=== PATIENT | female | born 1970 | race Caucasian/White ===

== ENCOUNTER 2016-12-13 10:30 | Emergency (ER) | payer BC, OTHER ==
[2016-12-13] MEDS ORDERED: CIPROFLOXACIN 250 MG TABLET PO STA (11:56)
[2016-12-13] MEDS ORDERED: CIPROFLOXACIN 250 MG TABLET PO ONE (12:01)
== END 2016-12-13 12:05 | disposition home or self-care (01) ==
DX: N12 Tubulo-interstitial nephritis, not specified as acute or chronic (principal); R03.0 Elevated blood-pressure reading, without diagnosis of hypertension; Z85.3 Personal history of malignant neoplasm of breast
CPT/HCPCS: 81001; 81025; 87086; 99282; 99283; A9270

== ENCOUNTER 2017-02-26 11:13 | Emergency (ER) | payer BC, OTHER ==
--- NOTE | 2017-02-26 11:24 | ED Physician Documentation ---
PD HPI HEENT - Stated complaint Stated Complaint: HIGH BLOOD PRESSURE - Chief complaint Chief Complaint: General - History obtained from History obtained from: Patient - History of Present Illness Timing - onset: Yesterday (she had her BP read at [facility] yesterday and was quite high at 180/110, so bought BP cuff and has taken it several times since then, with consistently high reading, particularly diastolic. Here for concern about it being so high.) Timing - duration: Days (2) Timing - details: Other (unknown current duration of high BP. She says it has been slightly abnormal high for office visits/etc for over 6 months, but not enough to start med.) Associated symptoms: Headache (feeling of head pressure and correlates it to when BP is higher.). No: Fever, Congestion Similar symptoms before: No diagnosis Recently seen: Not recently seen Review of Systems Constitutional: reports: Myalgias, Fatigue (often). denies: Fever, Chills Nose: denies: Rhinorrhea / runny nose, Congestion Throat: denies: Sore throat Cardiac: denies: Chest pain / pressure, Palpitations Respiratory: reports: Dyspnea (intermittently). denies: Cough, Wheezing GI: denies: Abdominal Pain, Nausea, Vomiting : denies: Dysuria, Frequency Skin: denies: Rash Musculoskeletal: denies: Extremity swelling Neurologic: denies: Focal weakness, Numbness, Difficulty speaking, Near syncope (feeling head pressure and notes it to be when BP is elevated.), Confused, Altered mental status, Headache PD PAST MEDICAL HISTORY - Past Medical History Cardiovascular: Arrhythmia (right bundle block) Respiratory: None Neuro: None Endocrine/Autoimmune: None GI: None LIMB DRIVER: Endometriosis, Breast cancer : None HEENT: None Psych: Anxiety, Panic attacks, Obsessive compulsive disorder Musculoskeletal: None Derm: 11 - Past Surgical History Past Surgical History: Yes General: Cholecystectomy Ortho: Other /LIMB DRIVER: Tubal ligation, Mastectomy - Present Medications Home Medications: Ambulatory Orders Medication Instructions Recorded Confirmed Venlafaxine ER [Effexor ER] 225 mg PO DAILY 03/04/13 02/26/17 Anastrozole 1 mg ORAL DAILY 12/13/16 02/26/17 Calcium Carbonate/Vitamin D3 1 tab ORAL DAILY 12/13/16 02/26/17 [Calcium 500 + Vit D Caplet] Clonazepam 0.5 mg ORAL QPM 12/13/16 02/26/17 Ibuprofen 800 mg PO TID PRN 12/13/16 02/26/17 Losartan [Cozaar] 50 mg PO DAILY #30 tablet 02/26/17 - Allergies Allergies/Adverse Reactions: Allergies Allergy/AdvReac Type Severity Reaction Status Date / Time clindamycin AdvReac Severe chest pain Verified 02/26/17 11:17 - Social History Does the pt smoke?: No Smoking Status: Never smoker Does the pt drink ETOH?: Yes Does the pt have substance abuse?: No - Family History Family history: reports: CAD, Sudden . denies: Venous thromboembolism - Immunizations Immunizations are current?: Yes - POLST Patient has POLST: No PD ED PE NORMAL - Vitals Vital signs reviewed: Yes - General General: Alert and oriented X 3, No acute distress, Well developed/nourished - HEENT HEENT: PERRL (fundi normal), Moist mucous membranes, Pharynx benign - Neck Neck: Supple, no meningeal sign, No adenopathy, Thyroid normal - Cardiac Cardiac: RRR, No murmur - Respiratory Respiratory: Clear bilaterally - Abdomen Abdomen: Soft, Non tender - Back Back: No CVA TTP - Derm Derm: Normal color, Warm and dry - Extremities Extremities: Normal ROM s pain, No edema, No calf tenderness / cord - Neuro Neuro: Alert and oriented X 3, 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 No: Normal affect (anxious about BP being elevated) Results - Vitals Vitals: Vital Signs - 24 hr 02/26/17 02/26/17 11:18 12:48 Temperature 36.8 C Heart Rate 85 70 Respiratory 20 18 Rate Blood Pressure 150/100 H 138/97 H O2 Saturation 100 98 Oxygen O2 Source Room air - EKG (time done) 11:47 Rate: Rate (enter#) (78) Rhythm: NSR [place]: Normal Intervals: RBBB QRS: Normal Ischemia: Normal ST segments. No: ST elevation c/w ischemia, ST depression Compare to prior EKG: Old EKG unavailable - Labs Labs: Laboratory Tests 02/26/17 02/26/17 02/26/17 11:47 11:47 12:07 WBC 7.8 RBC 4.52 Hgb 13.2 Hct 38.6 MCV 85.4 MCH 29.3 MCHC 34.3 RDW 13.1 Plt Count 309 MPV 7.3 L Neut # 4.8 Lymph # 2.1 Bureau # 0.5 Eos # 0.3 Baso # 0.1 Absolute Nucleated RBC 0.00 Nucleated RBCs 0.0 Sodium 138 Potassium 3.9 Chloride 101 Carbon Dioxide 28 Anion Gap 9.0 BUN 13 Creatinine 0.8 Estimated GFR (MDRD) 77 L Glucose 95 Calcium 9.4 Total Bilirubin 0.4 AST 16 ALT 16 Alkaline Phosphatase 72 Total Protein 7.2 Albumin 4.3 Globulin 2.9 Albumin/Globulin Ratio 1.5 Lipase 15 L Urine Color YELLOW Urine Clarity CLEAR Urine pH 5.5 Ur Specific [place] <=1.005 Urine Protein NEGATIVE Urine Glucose (UA) NEGATIVE Urine Ketones NEGATIVE Urine Occult Blood SMALL H Urine Nitrite NEGATIVE Urine Bilirubin NEGATIVE Urine Urobilinogen 0.2 (NORMAL) Ur Leukocyte Esterase NEGATIVE Urine RBC 0-5 Urine WBC 0-3 Ur Squamous Epith Cells NONE SEEN Urine Bacteria None Seen Ur Microscopic Review INDICATED Urine Culture Comments NOT INDICATED PD MEDICAL DECISION MAKING - ED course Complexity details: reviewed results, considered differential (I don't know if the BP is actually making her feel badly, but it is elevated and she says that it has been slightly high for awhile, so reasonable to start low dose treatment. Even if not directly giving her symptoms, the elevated pressure is giving her enough anxiety about it to start treatment, and seems appropriate by AHA guidelines. ), d/w patient Departure - Departure Disposition: 01 Home, Self Care Clinical Impression: High blood pressure Qualifiers: Hypertension type: unspecified secondary hypertension Qualified Code(s): I15.9 - Secondary hypertension, unspecified Condition: Stable Record reviewed to determine appropriate education?: Yes Instructions: ED Hypertension New Begin Tx Prescriptions: Losartan [Cozaar] 50 mg PO DAILY #30 tablet Comments: With your BP being moderately elevated and it making you feel badly, and with you having had a bit high BP in the past, it would make sense to start a mild blood pressure medication. Low salt diet, and do some regular exercise for even 20-30 minutes 3-4 times a week. These can help with blood pressure. Follow up with PMD to see if doing okay. Check your BP once or twice daily over the next week and record it to see the trend of it over time. Call for an appt with your PCP. Discharge Date/Time: 02/26/17 12:48
[2017-02-26 11:54] LABS: BASOPHILS # (AUTO) 0.1 10^3/uL (0.0-0.1); BASOPHILS % (AUTO) 1.1 %; EOSINOPHILS # (AUTO) 0.3 10^3/uL (0.0-0.7); EOSINOPHILS % (AUTO) 4.4 %; HCT - HEMATOCRIT 38.6 % (37.0-47.0); HGB - HEMOGLOBIN 13.2 g/dL (12.0-16.0); LYMPHOCYTES # (AUTO) 2.1 10^3/uL (1.5-3.5); LYMPHOCYTES % (AUTO) 26.9 %; MEAN CORPUSCULAR HEMOGLOBIN 29.3 pg (27.0-31.0); MEAN CORPUSCULAR HGB CONC 34.3 g/dL (32.0-36.0); MEAN CORPUSCULAR VOLUME 85.4 fL (81.0-99.0); MEAN PLATELET VOLUME 7.3 fL (7.9-10.8); MONOCYTES # (AUTO) 0.5 10^3/uL (0.0-1.0); MONOCYTES % (AUTO) 6.5 %; NEUTROPHILS # (AUTO) 4.8 10^3/uL (1.5-6.6); NEUTROPHILS % (AUTO) 61.1 %; RED BLOOD COUNT 4.52 10^6/uL (4.20-5.40); RED CELL DISTRIBUTION WIDTH 13.1 % (12.0-15.0); UNCORRECTED WHITE BLOOD COUNT 7.8 x10^3/uL; WHITE BLOOD COUNT 7.8 x10^3/uL (4.8-10.8)
[2017-02-26 12:08] LABS: ALBUMIN/GLOBULIN RATIO 1.5 (1.0-2.2); BILIRUBIN,TOTAL 0.4 mg/dL (0.2-1.0); CALCIUM 9.4 mg/dL (8.5-10.3); CREATININE 0.8 mg/dL (0.4-1.0); POTASSIUM 3.9 mmol/L (3.5-5.0); TOTAL PROTEIN 7.2 g/dL (6.7-8.2)
[2017-02-26] MEDS ORDERED: LOSARTAN 50 MG TABLET PO STA (12:14)
[2017-02-26 12:29] LABS: BILIRUBIN,URINE NEGATIVE (NEGATIVE); PH,URINE 5.5 PH (5.0-7.5)
[2017-02-26 12:30] LABS: UA w/ MICROSCOPIC CHARGE YES
[2017-02-26 12:41] LABS: UR CULTURE IF IND NOT INDICATED; WBC,URINE 0-3 /HPF (0-5)
[2017-02-26 12:48] VITALS: BP 138/97
== END 2017-02-26 12:48 | disposition home or self-care (01) ==
LOC: ED 11:13
DX: I15.9 Secondary hypertension, unspecified (principal); I45.19 Other right bundle-branch block; R94.31 Abnormal electrocardiogram [ECG] [EKG]; Z85.3 Personal history of malignant neoplasm of breast; Z90.10 Acquired absence of unspecified breast and nipple
CPT/HCPCS: 36415; 80053; 81001; 83690; 85025; 93005; 93010; 99283; 99284; A9270; 81003; 87086

== ENCOUNTER 2017-06-26 11:03 | Emergency (ER) | payer BC, OTHER ==
[2017-06-26 11:08] VITALS: BP 155/104
[2017-06-26 11:28] LABS: BILIRUBIN,URINE NEGATIVE (NEGATIVE); PH,URINE 5.5 PH (5.0-7.5)
[2017-06-26 11:30] LABS: UA w/ MICROSCOPIC CHARGE YES
[2017-06-26 11:39] LABS: WBC,URINE >25 /HPF (0-5)
[2017-06-26 11:40] LABS: UR CULTURE IF IND INDICATED
--- NOTE | 2017-06-26 12:07 | ED Physician Documentation ---
PD HPI FEMALE - Stated complaint Stated Complaint: FEMALE - Chief complaint Chief Complaint: Abd Pain - History obtained from History obtained from: Patient - History of Present Illness Timing - onset: How many days ago (3) Timing - duration: Days (3) Timing - details: Gradual onset, Still present Associated symptoms: Back pain, Dysuria, Urinary frequency Contributing factors: No: Similar symptoms before: Diagnosis (UTI) Recently seen: Not recently seen - Additional information Additional information: Previously healthy 47-year-old female is developed urinary urgency frequency and dysuria with some low back pain. She has not had fever or vomiting. Review of Systems Constitutional: denies: Fever Eyes: denies: Decreased vision Ears: denies: Ear pain Nose: denies: Congestion Throat: denies: Sore throat Cardiac: denies: Chest pain / pressure Respiratory: denies: Cough GI: denies: Abdominal Pain, Nausea, Vomiting, Constipation, Diarrhea : reports: Dysuria, Frequency Skin: denies: Rash Musculoskeletal: reports: Back pain. denies: Neck pain, Extremity pain Neurologic: denies: Generalized weakness, Focal weakness, Numbness PD PAST MEDICAL HISTORY - Past Medical History Past Medical History: Yes Cardiovascular: Arrhythmia Respiratory: None Neuro: None Endocrine/Autoimmune: None GI: None SEPTIC TANK SERVICER: Endometriosis, Breast cancer : None HEENT: None Psych: Anxiety, Panic attacks, Obsessive compulsive disorder Musculoskeletal: None Derm: 11 - Past Surgical History Past Surgical History: Yes General: Cholecystectomy Ortho: Other /SEPTIC TANK SERVICER: Tubal ligation, Mastectomy - Present Medications Home Medications: Ambulatory Orders Medication Instructions Recorded Confirmed Venlafaxine ER [Effexor ER] 225 mg PO DAILY 03/04/13 06/26/17 Anastrozole 1 mg ORAL DAILY 12/13/16 06/26/17 Calcium Carbonate/Vitamin D3 1 tab ORAL DAILY 12/13/16 06/26/17 [Calcium 500 + Vit D Caplet] Clonazepam 0.5 mg ORAL QPM 12/13/16 06/26/17 Ibuprofen 800 mg PO TID PRN 12/13/16 06/26/17 Sulfamethoxazole/Trimethoprim 1 each PO BID #10 tablet 06/26/17 [Sulfamethoxazole-Tmp Ds Tablet] - Allergies Allergies/Adverse Reactions: Allergies Allergy/AdvReac Type Severity Reaction Status Date / Time clindamycin AdvReac Severe chest pain Verified 06/26/17 11:08 - Social History Does the pt smoke?: No Smoking Status: Never smoker Does the pt drink ETOH?: Yes Does the pt have substance abuse?: No - Immunizations Immunizations are current?: Yes - POLST Patient has POLST: No PD ED PE NORMAL - Vitals Vital signs reviewed: Yes (Hypertension) - General General: No acute distress, Well developed/nourished - HEENT HEENT: Atraumatic, PERRL, EOMI - Neck Neck: Supple, no meningeal sign - Respiratory Respiratory: No respiratory distress - Abdomen Abdomen: Soft, Non tender, Other (No pain to bimanual palpation of the right or left kidney.) - Back Back: No CVA TTP, No spinal TTP - Derm Derm: Normal color, Warm and dry, No rash - Extremities Extremities: No deformity, No edema - Neuro Neuro: No motor deficit, No sensory deficit - Psych Psych: Normal mood, Normal affect Results - Vitals Vitals: Vital Signs - 24 hr 06/26/17 11:05 Temperature 36.5 C Heart Rate 93 Respiratory 16 Rate Blood Pressure 155/104 H O2 Saturation 100 Oxygen O2 Source Room air - Labs Labs: Laboratory Tests 06/26/17 11:11 Urine Color YELLOW Urine Clarity CLEAR Urine pH 5.5 Ur Specific [place] <=1.005 Urine Protein NEGATIVE Urine Glucose (UA) NEGATIVE Urine Ketones NEGATIVE Urine Occult Blood LARGE H Urine Nitrite NEGATIVE Urine Bilirubin NEGATIVE Urine Urobilinogen 0.2 (NORMAL) Ur Leukocyte Esterase SMALL H Urine RBC 0-5 Urine WBC >25 H Urine WBC Clumps PRESENT Ur Epithelial Cells RARE Transitional Ur Squamous Epith Cells NONE SEEN Urine Bacteria Few Ur Microscopic Review INDICATED Urine Culture Comments INDICATED PD MEDICAL DECISION MAKING - ED course Complexity details: reviewed results, re-evaluated patient, considered differential, d/w patient ED course: 47-year-old female with acute urinary tract infection as allergy to clindamycin. Departure - Departure Disposition: 01 Home, Self Care Clinical Impression: Urinary tract infection Qualifiers: Urinary tract infection type: acute cystitis Hematuria presence: without hematuria Qualified Code(s): N30.00 - Acute cystitis without hematuria Condition: Stable Instructions: ED UTI Cystitis Female Follow-Up: Your, doctor [Other] Prescriptions: Sulfamethoxazole/Trimethoprim [Sulfamethoxazole-Tmp Ds Tablet] 1 each PO BID # 10 tablet Forms: Activity restrictions
== END 2017-06-26 12:21 | disposition home or self-care (01) ==
LOC: ED 11:03
DX: N30.00 Acute cystitis without hematuria (principal); I49.9 Cardiac arrhythmia, unspecified; Z85.3 Personal history of malignant neoplasm of breast
CPT/HCPCS: 81001; 81003; 87086; 99283

== ENCOUNTER 2017-09-16 09:29 | Outpatient (CLI) | payer BC, OTHER | END 2017-09-16 09:30 | disposition home or self-care (01) | LOC: LAB.F 09:29 | PROVIDERS: ATTEND Registered Nurse | DX: R82.99 Other abnormal findings in urine (principal) ==

== ENCOUNTER 2018-12-05 08:35 | Outpatient (CLI) | payer OTHER ==
[2018-12-05 11:21] LABS: CALCIUM 8.8 mg/dL (8.5-10.3); CREATININE 0.8 mg/dL (0.4-1.0)
== END 2018-12-05 08:36 | disposition home or self-care (01) ==
LOC: LAB.F 08:35
PROVIDERS: ATTEND Internal Medicine
DX: I10 Essential (primary) hypertension (principal)
CPT/HCPCS: 36415; 80048

== ENCOUNTER 2018-12-13 08:00 | Outpatient (CLI) | payer OTHER ==
[2018-12-13 18:03] LABS: CALCIUM 9.4 mg/dL (8.5-10.3); CREATININE 0.7 mg/dL (0.4-1.0)
== END 2018-12-13 23:59 | disposition home or self-care (01) ==
LOC: LAB.F 08:00
PROVIDERS: ATTEND Internal Medicine
DX: E78.6 Lipoprotein deficiency (principal); R79.89 Other specified abnormal findings of blood chemistry
CPT/HCPCS: 36415; 80048

== ENCOUNTER 2019-10-22 10:05 | Outpatient (CLI) | payer OTHER ==
[2019-10-22 18:17] LABS: ALBUMIN 3.9 g/dL (3.2-5.5); ALBUMIN/GLOBULIN RATIO 1.3 (1.0-2.2); ALKALINE PHOSPHATASE 39 IU/L (42-121); ALT ALANINE AMINOTRANSFERASE 15 IU/L (10-60); AST ASPARTATE AMINOTRANSFERASE 16 IU/L (10-42); BILIRUBIN,TOTAL 0.5 mg/dL (0.2-1.0); BUN - BLOOD UREA NITROGEN 19 mg/dL (6-20); CALCIUM 9.5 mg/dL (8.5-10.3); CARBON DIOXIDE - CO2 28 mmol/L (21-32); CHLORIDE 104 mmol/L (101-111); CHOL/HDL RATIO 3.3 (<4.4); CHOLESTEROL 217 mg/dL; CREATININE 0.7 mg/dL (0.4-1.0); GFR - MDRD 89 (>89); GLUCOSE 105 mg/dL (70-100); HDL CHOLESTEROL 65 mg/dL; LDL CHOLESTEROL,CALCULATED 132 mg/dL; MAGNESIUM 2.1 mg/dL (1.7-2.8); SODIUM 139 mmol/L (135-145); VLDL CHOLESTEROL 20 mg/dL
== END 2019-10-22 10:06 | disposition home or self-care (01) ==
LOC: LAB.S 10:05
PROVIDERS: ATTEND Internal Medicine
DX: I10 Essential (primary) hypertension (principal)
CPT/HCPCS: 36415; 80053; 80061; 83721; 83735

== ENCOUNTER 2021-08-04 08:00 | Outpatient (CLI) | payer OTHER ==
[2021-08-04 15:18] LABS: BILIRUBIN,URINE NEGATIVE (NEGATIVE); GLUCOSE, URINE (UA) NEGATIVE (NEGATIVE); KETONES,URINE (UA) NEGATIVE (NEGATIVE); LEUKOCYTE ESTERASE, URINE NEGATIVE (NEGATIVE); NITRITE,URINE NEGATIVE (NEGATIVE); OCCULT BLOOD,URINE NEGATIVE (NEGATIVE); PH,URINE 6.5 PH (5.0-7.5); PROTEIN,URINE NEGATIVE (NEGATIVE); UROBILINOGEN,URINE 0.2 (NORMAL) E.U./dL (NORMAL)
[2021-08-04 15:35] LABS: BACTERIA,URINE Rare /HPF (None Seen); CLARITY,URINE CLEAR (CLEAR); RBC,URINE 0-5 /HPF (0-5); SQUAMOUS EPITHELIAL CELL,UR MOD Squamous (<= Few)
== END 2021-08-04 23:59 | disposition home or self-care (01) ==
LOC: LAB.S 08:00
PROVIDERS: ATTEND Emergency Medicine
DX: R30.0 Dysuria (principal); I10 Essential (primary) hypertension; Z11.59 Encounter for screening for other viral diseases; R73.01 Impaired fasting glucose
CPT/HCPCS: 36415; 80053; 80061; 81001; 83036; 83721; 86803; 87086

== ENCOUNTER 2021-08-05 21:21 | Emergency (ER) | payer OTHER ==
[2021-08-05 21:43] LABS: BASOPHILS # (AUTO) 0.1 10^3/uL (0.0-0.1); BASOPHILS % (AUTO) 0.8 %; EOSINOPHILS # (AUTO) 0.3 10^3/uL (0.0-0.7); EOSINOPHILS % (AUTO) 3.1 %; HCT - HEMATOCRIT 40.4 % (37.0-47.0); HGB - HEMOGLOBIN 13.3 g/dL (12.0-16.0); LYMPHOCYTES # (AUTO) 2.4 10^3/uL (1.5-3.5); LYMPHOCYTES % (AUTO) 28.7 %; MEAN CORPUSCULAR HEMOGLOBIN 30.5 pg (27.0-31.0); MEAN CORPUSCULAR HGB CONC 32.9 g/dL (32.0-36.0); MEAN CORPUSCULAR VOLUME 92.7 fL (81.0-99.0); MEAN PLATELET VOLUME 8.6 fL (7.9-10.8); MONOCYTES # (AUTO) 0.8 10^3/uL (0.0-1.0); MONOCYTES % (AUTO) 9.3 %; NEUTROPHILS # (AUTO) 4.9 10^3/uL (1.5-6.6); NEUTROPHILS % (AUTO) 57.9 %; PLT - PLATELET COUNT 347 10^3/uL (130-450); RED BLOOD COUNT 4.36 10^6/uL (4.20-5.40); RED CELL DISTRIBUTION WIDTH 12.7 % (12.0-15.0); WHITE BLOOD COUNT 8.5 x10^3/uL (4.8-10.8)
[2021-08-05 21:56] LABS: BILIRUBIN,URINE NEGATIVE (NEGATIVE); GLUCOSE, URINE (UA) NEGATIVE (NEGATIVE); KETONES,URINE (UA) NEGATIVE (NEGATIVE); LEUKOCYTE ESTERASE, URINE NEGATIVE (NEGATIVE); NITRITE,URINE NEGATIVE (NEGATIVE); OCCULT BLOOD,URINE SMALL (NEGATIVE); PROTEIN,URINE NEGATIVE (NEGATIVE); UROBILINOGEN,URINE 0.2 (NORMAL) E.U./dL (NORMAL)
[2021-08-05 21:57] LABS: ALBUMIN 4.2 g/dL (3.2-5.5); ALBUMIN/GLOBULIN RATIO 1.4 (1.0-2.2); BILIRUBIN,TOTAL 0.7 mg/dL (0.2-1.0); CALCIUM 9.1 mg/dL (8.5-10.3); CREATININE 0.9 mg/dL (0.4-1.0); POTASSIUM 3.7 mmol/L (3.5-5.0); TOTAL PROTEIN 7.2 g/dL (6.7-8.2)
[2021-08-05 21:59] LABS: CLARITY,URINE CLEAR (CLEAR)
[2021-08-05 22:04] LABS: BACTERIA,URINE Rare /HPF (None Seen); RBC,URINE 0-5 /HPF (0-5); SQUAMOUS EPITHELIAL CELL,UR FEW Squamous (<= Few); WBC,URINE 0-3 /HPF (0-5)
[2021-08-05] MEDS ORDERED: SODIUM CHLORIDE 0.9% 1,000 ML IV STA (22:22)
[2021-08-05] MEDS ORDERED: IOVERSOL 320 100 ML VIAL IVP ONE ×2 (23:16→23:46)
--- NOTE | 2021-08-06 00:08 | CT Report ---
PROCEDURE: CT abdomen and pelvis with contrast INDICATIONS: R flank pain, n/v hematuria CONTRAST: IV CONTRAST: Optiray 320 ml: 100 PO CONTRAST: *NO PO CONTRAST TECHNIQUE: After the administration of contrast, 5 mm thick sections acquired from the diaphragms to the sym physis. 5 mm thick coronal and sagittal reformats were acquired. For radiation dose reduction, the following was used: automated exposure control, adjustment of mA and/or kV according to patient size . COMPARISON: None. FINDINGS: Image quality: Excellent. ABDOMEN: Lung bases: Lung bases are clear. Heart size is normal. Bilateral breast prosthesis noted. Solid organs: Liver and spleen are normal in size and enhancement. Gallbladder surgically absent B iliary system is non dilated. Pancreas enhances normally. No adrenal nodules. Kidneys demonstrate normal size and enhancement, without hydronephrosis. Peritoneum and bowel: Bowel loops demonstrate normal wall thickness and caliber. No free fluid or a ir. Moderate fecal debris throughout the colon Nodes and vessels: No retroperitoneal or mesenteric adenopathy by size criteria. Aorta and inferior vena cava are normal in size. Miscellaneous: No ventral hernias. PELVIS: Genitourinary: Bladder wall thickness is normal. Miscellaneous: No inguinal hernias or adenopathy. Bones: No suspicious bony lesions. No vertebral body compression fractures. IMPRESSION: 1. No acute findings. No evidence of renal calculi or hydronephrosis. 2. Moderate to fecal debris throughout the colon without obstruction. Reviewed by: Romeo Fountain MD on 08/05/2021 11:07 PM AKDT Approved by: Romeo Fountain MD on 08/05/2021 11:07 PM AKDT Station ID: [id number]
--- NOTE | 2021-08-06 00:22 | ED Physician Documentation ---
History of Present Illness - Stated complaint Stated Complaint: RLQ PAIN/FEVER - Chief complaint Chief Complaint: Abd Pain - History obtained from History obtained from: Patient - Additonal information Additional information: 51-year-old woman with history of high blood pressure and anxiety presents with right flank pain for the past 2 days, intermittent, associated with nonbloody nonbilious nausea and vomiting and subjective chills with T-max of 99.8 at home. Patient took ibuprofen prior to arrival and states that it gave her some relief. Denies urinary symptoms. PSH JONNY Review of Systems Ten Systems: 10 systems reviewed and negative Constitutional: reports: Myalgias. denies: Fever, Chills GI: reports: Nausea, Vomiting : reports: Hematuria. 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: Endometriosis, Breast cancer : None HEENT: None Psych: Anxiety, Panic attacks, Obsessive compulsive disorder Musculoskeletal: None Derm: 11 - Past Surgical History Past Surgical History: Yes General: Cholecystectomy Ortho: Other /AUTO FINANCE SALES REP: Tubal ligation, Mastectomy - Present Medications Home Medications: Ambulatory Orders Medication Instructions Recorded Confirmed Venlafaxine ER [Effexor ER] 225 mg PO DAILY 03/04/13 08/05/21 clonazePAM [Clonazepam] 0.5 mg ORAL QPM 12/13/16 08/05/21 Losartan Potassium [Cozaar] 100 mg PO QID 08/05/21 08/05/21 Tamoxifen [Nolvadex] 20 mg PO QID 08/05/21 08/05/21 amLODIPine [Norvasc] 2.5 mg PO QID 08/05/21 08/05/21 - Allergies Allergies/Adverse Reactions: Allergies Allergy/AdvReac Type Severity Reaction Status Date / Time clindamycin AdvReac Severe chest pain Verified 08/05/21 21:35 - Social History Does the pt smoke?: No Smoking Status: Never smoker Does the pt drink ETOH?: Yes Does the pt have substance abuse?: No - Immunizations Immunizations are current?: Yes - POLST Patient has POLST: No PD ED PE NORMAL - Vitals Vital signs reviewed: Yes - General General: Alert and oriented X 3, No acute distress, Well developed/nourished - HEENT HEENT: Atraumatic, PERRL, EOMI - Neck Neck: Supple, no meningeal sign - Cardiac Cardiac: RRR - Respiratory Respiratory: No respiratory distress, Clear bilaterally - Abdomen Abdomen: Non tender, Non distended - Back Back: Other (R CVA ttp) - Derm Derm: Normal color, Warm and dry - Neuro Neuro: No motor deficit, No sensory deficit - Psych Psych: Normal mood, Normal affect Results - Vitals Vitals: Vital Signs - 24 hr 08/05/21 08/06/21 21:32 00:36 Temperature 36.9 C 36.9 C Heart Rate 102 H 78 Respiratory 16 16 Rate Blood Pressure 161/90 H 138/80 H O2 Saturation 98 98 Oxygen O2 Source Room air - Labs Labs: Laboratory Tests 08/05/21 08/05/21 08/05/21 21:40 21:40 21:48 WBC 8.5 RBC 4.36 Hgb 13.3 Hct 40.4 MCV 92.7 MCH 30.5 MCHC 32.9 RDW 12.7 Plt Count 347 MPV 8.6 Neut # (Auto) 4.9 Lymph # (Auto) 2.4 [place] # (Auto) 0.8 Eos # (Auto) 0.3 Baso # (Auto) 0.1 Absolute Nucleated RBC 0.00 Nucleated RBC % 0.0 Sodium 140 Potassium 3.7 Chloride 103 Carbon Dioxide 27 Anion Gap 10.0 BUN 18 Creatinine 0.9 Estimated GFR (MDRD) 66 L Glucose 103 H Calcium 9.1 Total Bilirubin 0.7 AST 21 ALT 31 Alkaline Phosphatase 63 Total Protein 7.2 Albumin 4.2 Globulin 3.0 Albumin/Globulin Ratio 1.4 Lipase 30 Urine Color YELLOW Urine Clarity CLEAR Urine pH 6.0 Ur Specific [place] <=1.005 Urine Protein NEGATIVE Urine Glucose (UA) NEGATIVE Urine Ketones NEGATIVE Urine Occult Blood SMALL H Urine Nitrite NEGATIVE Urine Bilirubin NEGATIVE Urine Urobilinogen 0.2 (NORMAL) Ur Leukocyte Esterase NEGATIVE Urine RBC 0-5 Urine WBC 0-3 Ur Squamous Epith Cells FEW Squamous Urine Bacteria Rare Ur Microscopic Review INDICATED Urine Culture Comments NOT INDICATED PD MEDICAL DECISION MAKING - ED course ED course: Patient states her pain improved in the emergency department. declining pain meds. no nausea. ct noncontributory. discussed that she may have passed a stone or this could be muscle related pain. return precautions discussed. plan to f/u with pmd. Departure - Departure Disposition: 01 Home, Self Care Clinical Impression: Flank pain Condition: Good Instructions: ED Acute Pain [facility] Comments: You were seen in the emergency department for flank pain. Your CT did not un cover any dangerous findings. Your urine showed a small amount of blood which may mean you passed a kidney stone. You should follow up with your primary doctor this week. Return to the emergency department if you have new or worsening symptoms or other concerns. Discharge Date/Time: 08/06/21 00:47
[2021-08-06 00:36] VITALS: BP 138/80
== END 2021-08-06 00:47 | disposition home or self-care (01) ==
LOC: ED 21:21
DX: R10.31 Right lower quadrant pain (principal); R11.2 Nausea with vomiting, unspecified; R31.9 Hematuria, unspecified; I10 Essential (primary) hypertension
CPT/HCPCS: 36415; 74177; 80053; 81001; 83690; 85025; 99283; 99284; Q9967; 81003; 87086

== ENCOUNTER 2021-08-07 08:00 | Outpatient (CLI) | payer OTHER | END 2021-08-07 23:59 | disposition home or self-care (01) | LOC: LAB.S 08:00 | PROVIDERS: ATTEND Emergency Medicine | DX: R53.83 Other fatigue (principal); Z20.822 Contact with and (suspected) exposure to COVID-19 ==

== ENCOUNTER 2022-11-04 14:23 | Outpatient (CLI) | payer OTHER | END 2022-11-04 14:24 | disposition critical access hospital (66) | LOC: EMS 14:23 | DX: E16.2 Hypoglycemia, unspecified (principal); R51.9 Headache, unspecified | CPT/HCPCS: A0425; A0429 ==

== ENCOUNTER 2022-11-04 14:47 | Emergency (ER) | payer OTHER ==
--- NOTE | 2022-11-04 15:12 | ED Physician Documentation ---
History of Present Illness - Stated complaint Stated Complaint: LOW BLOOD SUGAR - Chief complaint Chief Complaint: General - History obtained from History obtained from: Patient - History of Present Illness Timing: Today, Yesterday Quality: the patient has had Dx of pre-diabetes. She has a blood cglucose monitor and checks blood sugar 3 times daily and it is usually fairly stable. The past 2 days has had the sugar drop to 40s as lowest but down to 60-70 several times. she does not take insulin nor diabetes meds otherwise. No change in meds otherwise. She state has been eating regularly. No unusual phuysical activity. Having some cramping in abd but no diarrhea. No URi nor UTI symptoms. Review of Systems Constitutional: denies: Fever, Chills Nose: denies: Rhinorrhea / runny nose, Congestion Throat: denies: Sore throat Respiratory: denies: Cough GI: reports: Abdominal Pain (mild intermittent cramping, nonfocal.). denies: Nausea, Vomiting, Constipation, Diarrhea : denies: Dysuria, Discharge Skin: denies: Rash, Lesions PD PAST MEDICAL HISTORY - Past Medical History Cardiovascular: Arrhythmia Respiratory: None Endocrine/Autoimmune: None GI: None PET CAREGIVER: Endometriosis, Breast cancer : None HEENT: None Psych: Anxiety, Panic attacks, Obsessive compulsive disorder Musculoskeletal: None Derm: 11 - Past Surgical History Past Surgical History: Yes General: Cholecystectomy Ortho: Other /PET CAREGIVER: Tubal ligation, Mastectomy - Present Medications Home Medications: Ambulatory Orders Medication Instructions Recorded Confirmed Venlafaxine ER [Effexor ER] 225 mg PO DAILY 03/04/13 08/05/21 clonazePAM [Clonazepam] 0.5 mg ORAL QPM 12/13/16 08/05/21 Losartan Potassium [Cozaar] 100 mg PO QID 08/05/21 08/05/21 Tamoxifen [Nolvadex] 20 mg PO QID 08/05/21 08/05/21 amLODIPine [Norvasc] 2.5 mg PO QID 08/05/21 08/05/21 - Allergies Allergies/Adverse Reactions: Allergies Allergy/AdvReac Type Severity Reaction Status Date / Time clindamycin AdvReac Severe chest pain Verified 11/04/22 14:52 - Social History Does the pt smoke?: No Smoking Status: Never smoker Does the pt drink ETOH?: Yes Does the pt have substance abuse?: No - Immunizations Immunizations are current?: Yes - POLST Patient has POLST: No PD ED PE NORMAL - Vitals Vital signs reviewed: Yes - General General: Alert and oriented X 3, No acute distress, Well developed/nourished - HEENT HEENT: Pharynx benign - Neck Neck: Supple, no meningeal sign, No adenopathy - Cardiac Cardiac: RRR, No murmur - Respiratory Respiratory: Clear bilaterally - Abdomen Abdomen: Soft, Non tender - Derm Derm: Normal color, Warm and dry - Extremities Extremities: No edema, No calf tenderness / cord - Neuro Neuro: Alert and oriented X 3, No motor deficit, Normal speech Results - Vitals Vitals: Vital Signs - 24 hr 11/04/22 11/04/22 11/04/22 14:52 14:56 16:56 Temperature 36.5 C 36.5 C Heart Rate 90 90 86 Respiratory 16 16 16 Rate Blood Pressure 147/100 H 147/100 H 145/98 H O2 Saturation 99 99 98 Oxygen O2 Source Room air - Labs Labs: Laboratory Tests 11/04/22 11/04/22 11/04/22 15:15 15:19 15:19 WBC 6.5 RBC 4.43 Hgb 13.5 Hct 40.6 MCV 91.6 MCH 30.5 MCHC 33.3 RDW 13.0 Plt Count 345 MPV 8.7 Neut # (Auto) 4.4 Lymph # (Auto) 1.2 L Toole # (Auto) 0.6 Eos # (Auto) 0.2 Baso # (Auto) 0.1 Absolute Nucleated RBC 0.00 Nucleated RBC % 0.0 Sodium 134 L Potassium 4.5 Chloride 97 L Carbon Dioxide 29 Anion Gap 8.0 BUN 21 H Creatinine 0.7 Estimated GFR (MDRD) 88 L Glucose 94 Estimat Average Glucose Hemoglobin A1c % Calcium 9.2 Total Bilirubin 0.7 AST 24 ALT 26 Alkaline Phosphatase 56 Total Protein 7.3 Albumin 4.0 Globulin 3.3 Albumin/Globulin Ratio 1.2 Lipase 32 TSH Cortisol Urine Color Urine Clarity Urine pH Ur Specific [place] Urine Protein Urine Glucose (UA) Urine Ketones Urine Occult Blood Urine Nitrite Urine Bilirubin Urine Urobilinogen Ur Leukocyte Esterase Ur Microscopic Review Urine Culture Comments Nasal Adenovirus (PCR) NOT DETECTED Nasal B. parapertussis DNA (PCR) NOT DETECTED Nasal Coronavir 229E PCR NOT DETECTED Nasal Coronavir HKU1 PCR NOT DETECTED Nasal Coronavir NL63 PCR NOT DETECTED Nasal Coronavir OC43 PCR NOT DETECTED Nasal Enterovir/Rhinovir PCR NOT DETECTED Nasal Influenza B PCR NOT DETECTED Nasal Influenza A PCR NOT DETECTED Nasal Parainfluen 1 PCR NOT DETECTED Nasal Parainfluen 2 PCR NOT DETECTED Nasal Parainfluen 3 PCR NOT DETECTED Nasal Parainfluen 4 PCR NOT DETECTED Nasal RSV (PCR) NOT DETECTED Nasal B.pertussis DNA PCR NOT DETECTED Nasal C.pneumoniae (PCR) NOT DETECTED Yoel Human Metapneumo PCR NOT DETECTED Nasal M.pneumoniae (PCR) NOT DETECTED Nasal SARS-CoV-2 (PCR) NOT DETECTED 11/04/22 11/04/22 11/04/22 15:19 15:19 15:30 WBC RBC Hgb Hct MCV MCH MCHC RDW Plt Count MPV Neut # (Auto) Lymph # (Auto) Toole # (Auto) Eos # (Auto) Baso # (Auto) Absolute Nucleated RBC Nucleated RBC % Sodium Potassium Chloride Carbon Dioxide Anion Gap BUN Creatinine Estimated GFR (MDRD) Glucose Estimat Average Glucose 103 H Hemoglobin A1c % 5.2 Calcium Total Bilirubin AST ALT Alkaline Phosphatase Total Protein Albumin Globulin Albumin/Globulin Ratio Lipase TSH 2.35 Cortisol 6.6 Urine Color YELLOW Urine Clarity CLEAR Urine pH 6.0 Ur Specific [place] <=1.005 Urine Protein NEGATIVE Urine Glucose (UA) NEGATIVE Urine Ketones NEGATIVE Urine Occult Blood TRACE-INTA Urine Nitrite NEGATIVE Urine Bilirubin NEGATIVE Urine Urobilinogen 0.2 (NORMAL) Ur Leukocyte Esterase NEGATIVE Ur Microscopic Review NOT INDICATED Urine Culture Comments NOT INDICATED Nasal Adenovirus (PCR) Nasal B. parapertussis DNA (PCR) Nasal Coronavir 229E PCR Nasal Coronavir HKU1 PCR Nasal Coronavir NL63 PCR Nasal Coronavir OC43 PCR Nasal Enterovir/Rhinovir PCR Nasal Influenza B PCR Nasal Influenza A PCR Nasal Parainfluen 1 PCR Nasal Parainfluen 2 PCR Nasal Parainfluen 3 PCR Nasal Parainfluen 4 PCR Nasal RSV (PCR) Nasal B.pertussis DNA PCR Nasal C.pneumoniae (PCR) Yoel Human Metapneumo PCR Nasal M.pneumoniae (PCR) Nasal SARS-CoV-2 (PCR) PD Medical Decision Making - ED course Complexity details: reviewed results (unclear why low sugar episodes. It seems unusual that nondiabetic patient actually has glucose monitor and is using it TID. She should run calibration/validation of her monitor at home to ensure reading correctly. Otherwise would want to consider insulinoma or such. UptoDaania had flow chart of workup), considered differential (low blood sugar the past 2 days, but no insluin nor oral meds for diabetes. No other obvious meds are new or likely to cause low sugar. No excess energy loss such as activity,e xercise, infection. No change in diet/calorie intake. ), d/w patient Reviewed Lab Results: normal A1C and basic lytes and renal function. Pending is still serum insluin and c-peptide as part of workup for excess insulin production. Otherwise may be dysfunction of pancreas as approaching transition to diabetic and having excess insulin response to eating. PMD will need to follow up on labs. Meanwhile to have patient eat longer duration calories of protein and fats and small amounts assuming excess stimulation of pancreas. Departure - Departure Disposition: 01 Home, Self Care Clinical Impression: Hypoglycemia Condition: Stable Record reviewed to determine appropriate education?: Yes Follow-Up: Krystal Arteaga MD [Primary Care Provider] - Comments: Make sure you are glucose mayra and monitor are working appropriately and that you are getting true readings. There should be a way to calibrated or tested. At this point I would suggest eating smaller frequent meals through the day in case you are having a insulin over response from your pancreas. There would be more stimulated by large meals and may overshoot on your blood sugar metabolism. Also have a small meal of long-acting long-lasting calories such as protein or fats before bedtime 2. Follow-up with your primary care for further testing and evaluation and review of the labs done here. The basic labs right now show normal kidney function, electrolytes, liver function and blood count. Also screens for your thyroid and adrenals are normal with TSH and cortisol. Still pending are your A1c as well as insulin and C-peptide levels. These will result later or 2 of them are send out and will result in a couple of days. Your urine test and respiratory panel are normal as is your white count so no obvious noted infection at this time. Recheck if you do develop particular symptoms of infection such as fever, cough, belly pain, diarrhea or other g eneral symptoms. Discharge Date/Time: 11/04/22 17:43
[2022-11-04 15:26] LABS: BASOPHILS # (AUTO) 0.1 10^3/uL (0.0-0.1); BASOPHILS % (AUTO) 0.9 %; EOSINOPHILS # (AUTO) 0.2 10^3/uL (0.0-0.7); EOSINOPHILS % (AUTO) 3.1 %; HCT - HEMATOCRIT 40.6 % (37.0-47.0); HGB - HEMOGLOBIN 13.5 g/dL (12.0-16.0); LYMPHOCYTES # (AUTO) 1.2 10^3/uL (1.5-3.5); LYMPHOCYTES % (AUTO) 18.9 %; MEAN CORPUSCULAR HEMOGLOBIN 30.5 pg (27.0-31.0); MEAN CORPUSCULAR HGB CONC 33.3 g/dL (32.0-36.0); MEAN CORPUSCULAR VOLUME 91.6 fL (81.0-99.0); MEAN PLATELET VOLUME 8.7 fL (7.9-10.8); MONOCYTES # (AUTO) 0.6 10^3/uL (0.0-1.0); MONOCYTES % (AUTO) 8.5 %; NEUTROPHILS # (AUTO) 4.4 10^3/uL (1.5-6.6); NEUTROPHILS % (AUTO) 68.4 %; PLT - PLATELET COUNT 345 10^3/uL (130-450); RED BLOOD COUNT 4.43 10^6/uL (4.20-5.40); WHITE BLOOD COUNT 6.5 x10^3/uL (4.8-10.8)
[2022-11-04 15:41] LABS: BILIRUBIN,URINE NEGATIVE (NEGATIVE); GLUCOSE, URINE (UA) NEGATIVE (NEGATIVE); KETONES,URINE (UA) NEGATIVE (NEGATIVE); LEUKOCYTE ESTERASE, URINE NEGATIVE (NEGATIVE); NITRITE,URINE NEGATIVE (NEGATIVE); OCCULT BLOOD,URINE TRACE-INTA (NEGATIVE); PROTEIN,URINE NEGATIVE (NEGATIVE); UROBILINOGEN,URINE 0.2 (NORMAL) E.U./dL (NORMAL)
[2022-11-04 15:43] LABS: CLARITY,URINE CLEAR (CLEAR)
[2022-11-04 15:47] LABS: ALBUMIN/GLOBULIN RATIO 1.2 (1.0-2.2); BILIRUBIN,TOTAL 0.7 mg/dL (0.2-1.0); CALCIUM 9.2 mg/dL (8.5-10.3); CREATININE 0.7 mg/dL (0.4-1.0); POTASSIUM 4.5 mmol/L (3.5-5.0); TOTAL PROTEIN 7.3 g/dL (6.7-8.2)
[2022-11-04 15:53] LABS: CORTISOL 6.6 ug/dL
[2022-11-04 15:57] LABS: THYROID STIMULATING HORMONE 2.35 uIU/mL (0.34-5.60)
[2022-11-04 16:16] LABS: B. PARAPERTUSSIS- RESP PCR PAN NOT DETECTED; B. PERTUSSIS- RESP PCR PANEL NOT DETECTED; C. PNEUMONIAE- RESP PCR PANEL NOT DETECTED; CORONAVIRUS 229E-RESP PCR NOT DETECTED; CORONAVIRUS HKU1-RESP PCR NOT DETECTED; CORONAVIRUS NL63-RESP PCR NOT DETECTED; CORONAVIRUS OC43-RESP PCR NOT DETECTED; HUMAN METAPNEUMOVIRUS NOT DETECTED; INFLUENZA A- RESP PCR PANEL NOT DETECTED; INFLUENZA B - RESP PCR PANEL NOT DETECTED; M. PNEUMONIAE- RESP PCR PANEL NOT DETECTED; PARAINFLUENZA VIRUS 1 NOT DETECTED; PARAINFLUENZA VIRUS 2 NOT DETECTED; PARAINFLUENZA VIRUS 3 NOT DETECTED; PARAINFLUENZA VIRUS 4 NOT DETECTED; RHINOVIRUS/ENTEROVIRUS NOT DETECTED; RSV- RESP PCR PANEL NOT DETECTED; SARS-CoV-2 -RESP PCR PANEL NOT DETECTED
[2022-11-04 17:03] VITALS: BP 145/98
[2022-11-04 21:18] LABS: ESTIMATED AVERAGE GLUCOSE 103 mg/dL (70-100); HEMOGLOBIN A1c% 5.2 % (4.27-6.07)
[2022-11-06 08:09] LABS: C-PEPTIDE SERUM 3.3 ng/mL (1.1-4.4); INSULIN 6.5 uIU/mL (2.6-24.9)
== END 2022-11-04 17:43 | disposition home or self-care (01) ==
LOC: EDUNIT# → ED 14:47
DX: E16.2 Hypoglycemia, unspecified (principal); F41.9 Anxiety disorder, unspecified; Z20.822 Contact with and (suspected) exposure to COVID-19
CPT/HCPCS: 36415; 80053; 81001; 81003; 82533; 83036; 83525; 83690; 84443; 84681; 85025; 87086; 87633; 99283; 99284